=== PATIENT | female | born 2005 | race Caucasian/White ===

== ENCOUNTER 2025-07-21 10:35 | Outpatient (REF) | payer BC, SELFPAY ==
[2025-07-21 16:13] LABS: ESR 7 mm/hr (0-20)
[2025-07-21 22:40] LABS: CRP, High Sensitivity 0.91 mg/L (See Note)
[2025-07-22 11:05] LABS: Lyme Ab w Rflx to Lyme Confirm Positive (Negative)
[2025-07-22 12:26] LABS: Lyme IgG Ab Positive (Negative)
== END 2025-07-21 10:36 | disposition home or self-care (01) ==
LOC: NCHCN 10:35
PROVIDERS: Visit Provider Nurse Practitioner Family
DX: M25.50 Pain in unspecified joint (principal)
CPT/HCPCS: 85652; 86141; 86617; 86038; 86618